=== PATIENT | male | born 1975 | race Caucasian/White ===

== ENCOUNTER 2020-03-06 14:33 | Emergency (ER) | payer MEDICAID ==
--- NOTE | 2020-03-06 15:31 | ED Physician Documentation ---
History of Present Illness - Stated complaint Stated Complaint: LOREDO - Chief complaint Chief Complaint: Abd Pain - History obtained from History obtained from: Patient - History of Present Illness Timing: Prior to arrival, How many days ago (7) - Additonal information Additional information: 44-year-old male presents to the emergency department with chief complaint of abdominal discomfort and vague headache for about 1 week. He reports that he does have a history of gallstones and about 1 week ago he had attack. This included an episode of vomiting and nausea which she says is unusual for him or his GB attacks. Since then he has had vague but fairly persistent right upper quadrant abdominal pain and has been feeling nauseated. He is also had an intermittent headache for much of the last week but he has been taking Tylenol with some relief of pain. No fevers dysuria urgency or frequency. [place]. He does report that while being here he has been drinking 1-2 beers a day. Denies any illicit drug use. Denies taking any scheduled medications. He is not a diabetic. he is also reporting fatigue and malaise Review of Systems Constitutional: reports: Fatigue. denies: Fever, Chills Eyes: reports: Reviewed and negative Ears: reports: Reviewed and negative Nose: reports: Reviewed and negative Throat: reports: Reviewed and negative Cardiac: reports: Reviewed and negative Respiratory: reports: Reviewed and negative GI: reports: Abdominal Pain, Nausea, Vomiting. denies: Diarrhea, Bloody / black stool : reports: Reviewed and negative Skin: reports: Reviewed and negative Musculoskeletal: reports: Reviewed and negative Neurologic: reports: Headache Psychiatric: reports: Reviewed and negative PD PAST MEDICAL HISTORY - Past Medical History Past Medical History: Yes Cardiovascular: None Respiratory: None Neuro: None Endocrine/Autoimmune: None GI: Other : None HEENT: None Psych: None Musculoskeletal: None Derm: None Other Past Medical History: Gall Bladder polyps - Past Surgical History Past Surgical History: No - Allergies Allergies/Adverse Reactions: Allergies Allergy/AdvReac Type Severity Reaction Status Date / Time ibuprofen AdvReac Cramps Verified 03/06/20 14:48 - Social History Does the pt smoke?: No Smoking Status: Never smoker Does the pt drink ETOH?: Yes Does the pt have substance abuse?: No - Immunizations Immunizations are current?: Yes PD ED PE EXPANDED - General General: Alert, No acute distress, Well developed/nourished - HEENT HEENT: Atraumatic, PERRL, EOMI, Ears normal, Moist mucous membranes - Neck Neck: Supple w/out meningeal sx. No: No tenderness - Cardiac Cardiac: Regular Rate, Radial strong equal, Cap refill < 2 sec - Respiratory Respiratory: Clear to ausultation yuli. No: Distress, Labored - Abdomen Abdomen: Normal Bowel sounds, RUQ (Mild tenderness in the right upper quadrant without rebound or guarding. Negative Carnes's.) - Derm Derm: Normal color. No: Rash, Petecchiae, Purpura - Extremities Extremities: Normal Results - Vitals Vitals: Vital Signs - 24 hr 03/06/20 03/06/20 03/06/20 14:41 16:47 18:00 Temperature 36.3 C L Heart Rate 77 50 L 72 Respiratory 16 18 19 Rate Blood Pressure 138/77 H 119/56 L 128/70 O2 Saturation 99 100 100 Oxygen O2 Source Room air - Labs Labs: Laboratory Tests 03/06/20 03/06/20 03/06/20 15:08 15:57 15:57 WBC 6.5 RBC 5.27 Hgb 15.3 Hct 45.9 MCV 87.1 MCH 29.0 MCHC 33.3 RDW 13.2 Plt Count 215 MPV 8.7 Neut # (Auto) 4.3 Lymph # (Auto) 1.6 Hall # (Auto) 0.4 Eos # (Auto) 0.1 Baso # (Auto) 0.1 Absolute Nucleated RBC 0.00 Nucleated RBC % 0.0 Sodium 137 Potassium 3.7 Chloride 99 L Carbon Dioxide 25 Anion Gap 13.0 BUN 14 Creatinine 0.8 Estimated GFR (MDRD) 105 Glucose 83 Calcium 9.4 Total Bilirubin 4.9 H AST 62 H ALT 149 H Alkaline Phosphatase 145 H Total Protein 7.8 Albumin 4.6 Globulin 3.2 Albumin/Globulin Ratio 1.4 Lipase 40 Urine Color YELLOW Urine Clarity CLEAR Urine pH 6.0 Ur Specific Rombauer 1.015 Urine Protein NEGATIVE Urine Glucose (UA) NEGATIVE Urine Ketones 15 H Urine Occult Blood NEGATIVE Urine Nitrite NEGATIVE Urine Bilirubin NEGATIVE Urine Urobilinogen 0.2 (NORMAL) Ur Leukocyte Esterase NEGATIVE Ur Microscopic Review NOT INDICATED Urine Culture Comments NOT INDICATED - Rads (name of study) abd US Radiology: Final report received (Several scattered echogenic foci are seen, nonmobile at the gallbladder mucosal surfaces measuring between 3 and 5 mm. Acute cholecystitis or biliary obstruction is not found. CBD 6 mm) PD MEDICAL DECISION MAKING - ED course Complexity details: reviewed results, re-evaluated patient, considered differential, d/w patient, d/w mainframe consultant (Dr. Rod WALKER [facility]) ED course: 44-year-old Male patient reports to the emergency department for evaluation of vague right upper quadrant abdominal discomfort for much of the last week. This is in the setting of a known history of cholelithiasis. He is also reporting fatigue and headaches. We we will proceed with COVID-19 screening as well as routine abdominal labs and in abdominal ultrasound to rule out acute Noemy cystitis. However on exam here he appears remarkably well with normal vitals in the very benign abdominal exam - An abdominal ultrasound showed multiple gallstones without findings of obstruction. His CBD was 6 mm. However unfortunately he does have some transaminase abnormalities. T bili is 4.9. I did discuss this case with GI Dr. Ritter through [facility] in [place] where patient lives. He would recommend the patient be admitted overnight for observation and repeat labs in a.m. If bilirubin remains elevated consider MRCP. I offered observation admission to the patient however he declined it. He reports that he has very little pain and feels that he would be best for him to return to [facility] or tomorrow and follow-up with his primary care doctor. This gentleman is alert and has a capacity to make this decision. He was notified that he could return at any point to the ER for further evaluation if he felt it was necessary. Departure - Departure Disposition: 01 Home, Self Care Clinical Impression: Gallstones, Total bilirubin, elevated Condition: Stable Record reviewed to determine appropriate education?: Yes Instructions: Gallstones Dc Comments: Nirav, your ultrasound today shows that you have multiple gallstones. However your bilirubin is elevated at 4.9. This makes us concerned that you may have had an obstruction or may have a stone that we cannot see in your common bile duct. We offered you observation/admission to the [facility] but you have declined that. It is very important that you have a repeat of your labs completed in the next 48 hours. I also recommend that you have very close follow-up with your primary doctor and a GI specialist in [place] if your repeat returning there. You may return to this ER at any point for reevaluation if you wish
[2020-03-06 15:44] LABS: BILIRUBIN,URINE NEGATIVE (NEGATIVE); GLUCOSE, URINE (UA) NEGATIVE (NEGATIVE); KETONES,URINE (UA) 15 mg/dL (NEGATIVE); LEUKOCYTE ESTERASE, URINE NEGATIVE (NEGATIVE); NITRITE,URINE NEGATIVE (NEGATIVE); OCCULT BLOOD,URINE NEGATIVE (NEGATIVE); PROTEIN,URINE NEGATIVE (NEGATIVE); UROBILINOGEN,URINE 0.2 (NORMAL) E.U./dL (NORMAL)
[2020-03-06 15:45] LABS: CLARITY,URINE CLEAR (CLEAR)
[2020-03-06 16:07] LABS: BASOPHILS # (AUTO) 0.1 10^3/uL (0.0-0.1); BASOPHILS % (AUTO) 1.2 %; EOSINOPHILS # (AUTO) 0.1 10^3/uL (0.0-0.7); EOSINOPHILS % (AUTO) 0.9 %; HGB - HEMOGLOBIN 15.3 g/dL (14.0-18.0); LYMPHOCYTES # (AUTO) 1.6 10^3/uL (1.5-3.5); LYMPHOCYTES % (AUTO) 25.1 %; MEAN CORPUSCULAR HGB CONC 33.3 g/dL (32.0-36.0); MEAN CORPUSCULAR VOLUME 87.1 fL (80.0-94.0); MEAN PLATELET VOLUME 8.7 fL (7.4-11.4); MONOCYTES # (AUTO) 0.4 10^3/uL (0.0-1.0); MONOCYTES % (AUTO) 6.2 %; NEUTROPHILS # (AUTO) 4.3 10^3/uL (1.5-6.6); NEUTROPHILS % (AUTO) 66.3 %; PLT - PLATELET COUNT 215 10^3/uL (130-450); RED BLOOD COUNT 5.27 10^6/uL (4.70-6.10); RED CELL DISTRIBUTION WIDTH 13.2 % (12.0-15.0); WHITE BLOOD COUNT 6.5 x10^3/uL (4.8-10.8)
[2020-03-06 16:21] LABS: ALBUMIN 4.6 g/dL (3.2-5.5); ALBUMIN/GLOBULIN RATIO 1.4 (1.0-2.2); BILIRUBIN,TOTAL 4.9 mg/dL (0.2-1.0); CALCIUM 9.4 mg/dL (8.5-10.3); CREATININE 0.8 mg/dL (0.6-1.2); TOTAL PROTEIN 7.8 g/dL (6.7-8.2)
--- NOTE | 2020-03-06 17:25 | Ultrasound Report ---
PROCEDURE: Abdomen Limited INDICATIONS: hx of gallstones; persistent RUQ pain X 1 week TECHNIQUE: Real-time focused scanning was performed of the abdomen, with image documentation. COMPARISON: None FINDINGS: The liver measures 15.5 cm craniocaudad, normal. Echotexture is normal. The gallbladder wa ll is normal in thickness at 2 mm. Several scattered nonmobile echogenic foci are seen within the gal lbladder lumen consistent with small polyps. No focal tenderness is present, and no pericholecystic f ree fluid is found. The common duct is normal in caliber at 6 mm. No pancreatic abnormality is seen b ut the pancreatic tail is poorly visualized due to bowel gas. Scanning over the right kidney for this limited ultrasound targeted to the right upper quadrant shows normal renal size and echotexture measuring 10.2 cm craniocaudad, without hydronephrosis or nephroli thiasis. IMPRESSION: Several scattered echogenic foci are seen, nonmobile, at the gallbladder mucosal surfaces measuring b etween 3 and 5 mm. Acute cholecystitis or biliary obstruction is not found. Depending on the clinical status follow-up by either CT scanning with contrast or MR cholangiogram may become necessary. Reviewed by: Julio Hector MD on 03/06/2020 5:24 PM PST Approved by: Julio Hector MD on 03/06/2020 5:24 PM PST Station ID: [id number]
[2020-03-06 18:54] VITALS: BP 122/87
== END 2020-03-06 18:50 | disposition home or self-care (01) ==
LOC: ED 14:33
DX: K80.20 Calculus of gallbladder without cholecystitis without obstruction (principal); R79.89 Other specified abnormal findings of blood chemistry; R74.01 Elevation of levels of liver transaminase levels; R51.9 Headache, unspecified; R53.83 Other fatigue; Z20.828 Contact with and (suspected) exposure to other viral communicable diseases
CPT/HCPCS: 36415; 76705; 80053; 81001; 81003; 83690; 85025; 87086; 99284